=== PATIENT | male | born 1960 | race African-American/Black ===

== ENCOUNTER 2024-03-22 09:22 | Outpatient (CLI) | payer BC ==
[2024-03-22] MEDS ORDERED: Magnevist 469MG/ML 20 ML VIAL ONE (10:35)
== END 2024-03-22 09:23 | disposition home or self-care (01) ==
LOC: CSHMRI 09:22
PROVIDERS: ATTEND Urology
DX: C61 Malignant neoplasm of prostate (principal); R59.0 Localized enlarged lymph nodes
CPT/HCPCS: 36415; 72197; 82565